=== PATIENT | male | born 1975 | race Caucasian/White ===

== ENCOUNTER 2017-10-20 08:13 | Emergency (ER) | payer OTHER ==
--- NOTE | 2017-10-20 08:44 | EDM.PDOC ---
ED HPI GENERAL MEDICAL PROBLEM - General Chief Complaint: Respiratory Problem Stated Complaint: COUGH,VOMITING,HEADACHE, ACHEY Time Seen by Provider: 10/20/17 08:39 - History of Present Illness INITIAL COMMENTS - FREE TEXT/NARRATIVE: HISTORY AND PHYSICAL: History of present illness: Patient is a 42-year-old male with no stated cardiac or pulmonary history was had 3 days of cough occasionally productive of phlegm and hacking with some spasm as well as low-grade fever of 99. He's had a sore throat for 2 days and diffuse bodyaches for the full 3 days. He's had no nausea vomiting or diarrhea and has been eating and drinking normally. He has a headache body ache but has not been using much [id number] for that. He has a provider at [facility] but did not make an appointment with him. He did not get a flu shot this year. Review of systems: As per history of present illness and below otherwise all systems reviewed and negative. Past medical history: As per history of present illness and as reviewed below otherwise noncontributory. Surgical history: As per history of present illness and as reviewed below otherwise noncontributory. Social history: No reported history of drug or alcohol abuse. Family history: As per history of present illness and as reviewed below otherwise noncontributory. Physical exam: Gen.: Well-developed well-nourished man who is nontoxic and speaking clearly in the ED. He has no hoarse or muffled voice and vital signs of been reviewed by me HEENT: Atraumatic, normocephalic, pupils reactive, negative for conjunctival pallor or scleral icterus, mucous membranes moist, throat clear, neck supple, nontender, trachea midline. No cervical adenopathy or nuchal rigidity, throat does have some erythema but no exudates. Lungs: Clear to auscultation, breath sounds equal bilaterally, chest nontender. No worker breathing Heart: S1S2, regular, negative for clicks, rubs, or JVD. Abdomen: Soft, nondistended, nontender. NABS Pelvis: Stable nontender. Genitourinary: Deferred. Rectal: Deferred. Extremities: Atraumatic, negative for cords or calf pain. Neurovascular unremarkable. Neuro: Awake, alert, oriented. Cranial nerves II through XII unremarkable. Cerebellum unremarkable. Motor and sensory unremarkable throughout. Exam nonfocal. Diagnostics: Rapid strep influenza Therapeutics: Spacer and spacer teaching Impression: Acute bronchitis/URI Definitive disposition and diagnosis as appropriate pending reevaluation and review of above. Generalized Pain Score (Numeric/FACES): 4 - Related Data Allergies Allergy/AdvReac Type Severity Reaction Status Date / Time No Known Allergies Allergy Verified 06/07/17 11:06 ED ROS GENERAL - Review of Systems Review Of Systems: ROS reveals no pertinent complaints other than HPI. ED EXAM, GENERAL - Physical Exam Exam: See Below (See dictation) Course - Vital Signs Last Recorded V/S: Last Vital Signs Temp 37.0 C 10/20/17 08:34 Pulse 86 10/20/17 08:34 Resp 16 10/20/17 08:34 BP 128/78 10/20/17 08:34 Pulse Ox - Orders/Labs/Meds Orders: Active Orders 24 hr Category Date Time Status Communication Order [RC] STAT Care 10/20/17 09:41 Ordered CULTURE STREP A CONFIRMATION [] Stat Lab 10/20/17 09:02 Results STREP SCRN A RAPID W CULT CONF [] Stat Lab 10/20/17 09:02 Results Departure - Departure Time of Disposition: 09:41 Disposition: Home, Self-Care 01 Condition: Good Clinical Impression: Acute bronchitis Qualifiers: Bronchitis organism: unspecified organism Qualified Code(s): J20.9 - Acute bronchitis, unspecified - Discharge Information Referrals: John Meraz MD [Primary Care Provider] - Forms: ED Department Discharge Additional Instructions: The following information is given to patients seen in the emergency department who are being discharged to home. This information is to outline your options for follow-up care. We provide all patients seen in our emergency department with a follow-up referral. The need for follow-up, as well as the timing and circumstances, are variable depending upon the specifics of your emergency department visit. If you don't have a primary care physician on staff, we will provide you with a referral. We always advise you to contact your personal physician following an emergency department visit to inform them of the circumstance of the visit and for follow-up with them and/or the need for any referrals to a consulting specialist. The emergency department will also refer you to a specialist when appropriate. This referral assures that you have the opportunity for followup care with a specialist. All of these measure are taken in an effort to provide you with optimal care, which includes your followup. Under all circumstances we always encourage you to contact your private physician who remains a resource for coordinating your care. When calling for followup care, please make the office aware that this follow-up is from your recent emergency room visit. If for any reason you are refused follow-up, please contact the [facility] emergency department at and ask to speak to the emergency department charge nurse. [facility] Primary care- Internal Medicine and Family [address] [id number] Please use albuterol with a spacer as directed and take prednisone and use cough medicine as prescribed. Please call and follow-up with a provider in the clinic in the next few days and return to ER as needed and as discussed. Please push hydration - My Orders Last 24 Hours: My Active Orders 10/20/17 09:02 CULTURE STREP A CONFIRMATION [RM] Stat STREP SCRN A RAPID W CULT CONF [RM] Stat 10/20/17 09:41 Communication Order [RC] STAT - Assessment/Plan Last 24 Hours: My Active Orders 10/20/17 09:02 CULTURE STREP A CONFIRMATION [RM] Stat STREP SCRN A RAPID W CULT CONF [RM] Stat 10/20/17 09:41 Communication Order [RC] STAT
== END 2017-10-20 10:04 | disposition home or self-care (01) ==
LOC: MW.ED 08:13
DX: J20.9 Acute bronchitis, unspecified (principal)
CPT/HCPCS: 87081; 87804; 87880; 99283